=== PATIENT | female | born 1995 | race Caucasian/White ===

== ENCOUNTER 2016-10-24 08:43 | Emergency (ER) | payer MEDICAID ==
[~2016-10-24] VITALS: Ht 149.9 cm; Wt 106.3 kg
[~2016-10-24 08:43] MED LIST: PREN1TAB60 PO
[2016-10-24] MEDS ORDERED: ALBUTEROL/IPRATROPIUM 2.5MG/0.5MG, 3 ML NPPB ONE (09:30)
[2016-10-24] MEDS ORDERED: ALBUTEROL/IPRATROPIUM 2.5MG/0.5MG, 3 ML ONE (09:47)
[2016-10-24 10:00] VITALS: BP 154/63
== END 2016-10-24 10:44 | disposition home or self-care (01) ==
LOC: ED 10:40
DX: J20.8 Acute bronchitis due to other specified organisms (principal); F17.200 Nicotine dependence, unspecified, uncomplicated; F12.10 Cannabis abuse, uncomplicated
CPT/HCPCS: 71020; 93005; 94640; J7620

== ENCOUNTER 2020-09-14 13:33 | Outpatient (CLI) | payer MEDICAID | END 2020-09-14 23:59 | disposition home or self-care (01) | LOC: STAR 13:33 | PROVIDERS: ATTEND Anesthesiology | DX: Z20.822 Contact with and (suspected) exposure to COVID-19 (principal) | CPT/HCPCS: U0003 ==

== ENCOUNTER 2020-09-17 00:09 | Inpatient (IN) | payer MEDICAID ==
[~2020-09-17] VITALS: Ht 149.9 cm; Wt 131.8 kg
[2020-09-17] MEDS ORDERED: LACTATED RINGERS 1,000 ML IVBOLUS ONE (06:00)
[2020-09-17] MEDS ORDERED: METOCLOPRAMIDE 5 MG/ML, 2ML IV ONE (06:00)
[2020-09-17] MEDS ORDERED: LACTATED RINGERS 1,000 ML IV SCH (06:00)
[2020-09-17] MEDS ORDERED: SODIUM CITRATE/CITRIC ACID 30 ML UDC PO ONE (06:00)
[2020-09-17] MEDS ORDERED: PREN1TAB62 PO (06:02)
[2020-09-17] MEDS ORDERED: VALA500T4 PO (06:02)
[2020-09-17 06:04] VITALS: BP 144/71
[2020-09-17] MEDS ORDERED: SODIUM CITRATE/CITRIC ACID 15 ML UDC ONE (06:30)
[2020-09-17] MEDS ORDERED: OXYTOCIN 30U/ 0.9% NaCL 500ML 500 ML ONE (06:30)
[2020-09-17] MEDS ORDERED: METOCLOPRAMIDE 5 MG/ML, 2ML ONE (06:30)
[2020-09-17] MEDS ORDERED: NEWBORN KIT ONE (06:30)
[2020-09-17 06:37] LABS: BASOPHILS % (AUTO) 1 % (0-1); EOSINOPHILS % (AUTO) 1 % (1-7); LYMPHOCYTES % (AUTO) 26 % (22-44); MEAN CORPUSCULAR HGB CONC 33.4 g/dL (32.4-35.8); MEAN PLATELET VOLUME 8.9 fL (7.4-10.4); MONOCYTES % (AUTO) 6 % (2-9); NEUTROPHILS % (AUTO) 66 % (42-75); PLATELET COUNT 303 x10^3/uL (130-400); RED BLOOD COUNT 4.86 x10^6/uL (3.82-5.3); RED CELL DISTRIBUTION WIDTH 14.8 % (9.6-15.2)
[2020-09-17 06:40] LABS: MD NO
[2020-09-17] MEDS ORDERED: HYDROmorphone 2 MG/ML, 1ML ONE (07:02)
[2020-09-17] MEDS ORDERED: OXYTOCIN 10 UNITS/ML, 1ML ONE (07:02)
[2020-09-17] MEDS ORDERED: FENTANYL PF 100 MCG/2ML ONE (07:02)
[2020-09-17] MEDS ORDERED: ONDANSETRON 2MG/ML, 2ML ONE (07:02)
[2020-09-17] MEDS ORDERED: CEFAZOLIN 1,000 MG ONE (07:02)
[2020-09-17 07:45] LABS: BARBITURATE SCREEN, URINE Negative (Negative); BENZODIAZEPINE SCREEN, URINE Negative (Negative); CANNABINOID SCREEN, URINE Negative (Negative); COCAINE SCREEN, URINE Negative (Negative); METHADONE SCREEN, URINE Negative (Negative); OPIATE SCREEN, URINE Negative (Negative)
[2020-09-17 07:46] LABS: AMPHETAMINE SCREEN, URINE Negative (Negative)
[2020-09-17 08:21] LABS: MICROSCOPIC NOT IND
[2020-09-17 08:41] LABS: TOTAL PROTEIN,URINE RANDOM < 5 mg/dL (0-12)
[2020-09-17] MEDS ORDERED: KETOROLAC 30 MG/1 ML ONE (08:43)
[2020-09-17] MEDS ORDERED: METOPROLOL 1 MG/ML, 5ML ONE (08:47)
[2020-09-17] MEDS ORDERED: ONDANSETRON 2MG/ML, 2ML IV PRN (09:30)
[2020-09-17] MEDS ORDERED: MORPHINE SULFATE 4 MG/ML, 1ML IVPush PRN (09:30)
[2020-09-17] MEDS ORDERED: MISOPROSTOL 200 MCG TABLET PR PRN (09:30)
[2020-09-17] MEDS ORDERED: SIMETHICONE 80 MG CHEW TAB PO PRN (09:30)
[2020-09-17] MEDS ORDERED: morphine SULFATE 10 MG/ML, 1ML IM PRN (09:30)
[2020-09-17] MEDS: KETOROLAC 30 MG/1 ML IV SCH ×3 (09:30→21:52)
[2020-09-17] MEDS ORDERED: ACETAMINOPHEN 325 MG TABLET PO PRN ×2 (09:30)
[2020-09-17] MEDS: LACTATED RINGERS 1,000 ML IV SCH ×4 (09:30→17:30)
[2020-09-17] MEDS: OXYTOCIN 30U/ 0.9% NaCL 500ML 500 ML IV SCH ×2 (09:40→19:30)
[2020-09-17] MEDS ORDERED: OXYcodone IR 5MG TABLET ONE (10:13)
[2020-09-17] MEDS: OXYcodone IR 5MG TABLET PO PRN ×4 (10:15→20:10)
[2020-09-17] MEDS ORDERED: morphine SULFATE 10 MG/ML, 1ML ONE (13:02)
[2020-09-17 16:23] LABS: BASOPHILS % (AUTO) 1 % (0-1); EOSINOPHILS % (AUTO) 0 % (1-7); LYMPHOCYTES % (AUTO) 19 % (22-44); MEAN CORPUSCULAR HEMOGLOBIN 28.1 pg (27.0-34.8); MEAN CORPUSCULAR HGB CONC 33.6 g/dL (32.4-35.8); MEAN PLATELET VOLUME 8.3 fL (7.4-10.4); MONOCYTES % (AUTO) 5 % (2-9); NEUTROPHILS % (AUTO) 75 % (42-75); PLATELET COUNT 249 x10^3/uL (130-400); RED BLOOD COUNT 4.05 x10^6/uL (3.82-5.3); RED CELL DISTRIBUTION WIDTH 14.9 % (9.6-15.2)
[2020-09-17 16:26] LABS: MD NO
[2020-09-17 18:19] VITALS: BP 131/81
[2020-09-17 19:30] VITALS: BP 105/65
[2020-09-17] MEDS: DOCUSATE 100 MG CAPSULE PO PRN (21:52)
[2020-09-18 00:34] VITALS: BP 124/76
[2020-09-18] MEDS: OXYcodone IR 5MG TABLET PO PRN ×6 (01:08→22:22)
[2020-09-18] MEDS: LACTATED RINGERS 1,000 ML IV SCH ×3 (01:22→09:30)
[2020-09-18] MEDS: KETOROLAC 30 MG/1 ML IV SCH (03:53)
[2020-09-18 04:30] VITALS: BP 105/70
[2020-09-18] MEDS: OXYTOCIN 30U/ 0.9% NaCL 500ML 500 ML IV SCH (04:50)
[2020-09-18 07:05] VITALS: BP 113/70
[2020-09-18] MEDS: PRENATAL VIT/IRON/FA 1 EACH TABLET PO SCH (09:29)
[2020-09-18] MEDS: IBUPROFEN 600 MG TABLET PO PRN ×3 (09:29→22:22)
[2020-09-18] MEDS: DOCUSATE 100 MG CAPSULE PO PRN ×2 (09:29→22:22)
[2020-09-18 12:03] VITALS: BP 137/79
[2020-09-18 15:59] VITALS: BP 148/83
[2020-09-18 19:44] VITALS: BP 121/72
[2020-09-19] MEDS: OXYcodone IR 5MG TABLET PO PRN (02:30)
[2020-09-19 07:05] VITALS: BP 126/73
[2020-09-19] MEDS ORDERED: IBUP-1222 PO (07:21)
[2020-09-19] MEDS ORDERED: OXYC-380 PO (07:21)
[2020-09-19] MEDS ORDERED: OXYcodone/APAP 5/325MG TABLET PO PRN (07:30)
[2020-09-19] MEDS: PRENATAL VIT/IRON/FA 1 EACH TABLET PO SCH (07:47)
[2020-09-19] MEDS: DOCUSATE 100 MG CAPSULE PO PRN (07:47)
[2020-09-19] MEDS: OXYcodone/APAP 10/325MG TABLET PO PRN ×2 (07:47→11:08)
[2020-09-19] MEDS: IBUPROFEN 600 MG TABLET PO PRN (07:47)
== END 2020-09-19 11:25 | disposition home or self-care (01) | DRG 788 ==
LOC: LDIP 05:41 → 2NW 11:02
PROVIDERS: ADMIT Obstetrics & Gynecology; ATTEND Obstetrics & Gynecology
PROC: 10D00Z1 Extraction of Products of Conception, Low, Open Approach (ICD-10-PCS; principal; 2020-09-17)
DX: O34.211 Maternal care for low transverse scar from previous cesarean delivery (principal); E66.01 Morbid (severe) obesity due to excess calories; O99.214 Obesity complicating childbirth; O99.824 Streptococcus B carrier state complicating childbirth; Z37.0 Single live birth; Z3A.39 39 weeks gestation of pregnancy; Z82.49 Family history of ischemic heart disease and other diseases of the circulatory system
CPT/HCPCS: 36415; 80307; 81003; 82570; 84156; 85025; 85461; 86592; 86850; 86900; 87806; G0378; J0690; J1170; J1885; J2405; J2790; J3010; G0475; J2270; J2590; J2765; J7120